=== PATIENT | female | born 1990 | race Hispanic/Latino ===

== ENCOUNTER 2021-09-28 11:39 | Emergency (ER) | payer BC, OTHER ==
[~2021-09-28] VITALS: Ht 177.8 cm; Wt 107.0 kg
[2021-09-28] MEDS ORDERED: CASIRIVIMAB/IMDEVIMAB 10 ML in SODIUM CHLORIDE 0.9% 100 ML IV ONE (12:00)
== END 2021-09-28 12:33 | disposition home or self-care (01) ==
LOC: ER 11:45
DX: U07.1 COVID-19 (principal); R05.9 Cough, unspecified; I10 Essential (primary) hypertension
CPT/HCPCS: 99283; J7050